=== PATIENT | male | born 1975 | race Hispanic/Latino ===

== ENCOUNTER → 2023-04-22 | Outpatient (CLI) | payer OTHER ==
[~2023-04-22] MED LIST: CATA0.2T OR; CELE20TA OR; CELEXA PO; HYDR50TA8 OR; LEVI20TA OR; NEUR300C OR; SERO1TAB3 OR; SERO200T OR; SERO200T PO; SERO400T PO; TRAM50TA2 OR; TRAZ100T OR
== END ==
LOC: M RAD 07:33
PROVIDERS: ATTEND Nurse Practitioner Family
DX: I12.9 Hypertensive chronic kidney disease with stage 1 through stage 4 chronic kidney disease, or unspecified chronic kidney disease (principal); N18.30 Chronic kidney disease, stage 3 unspecified; E78.5 Hyperlipidemia, unspecified

== ENCOUNTER 2025-09-22 18:39 | Emergency (ER) | payer OTHER ==
[~2025-09-22] VITALS: Ht 193 cm; Wt 154.6 kg
[2025-09-22 19:15] LABS: BASO # 0.1 10^3/uL (0.0-0.2); BASO % 1.1 % (0.0-1.0); EOS # 0.2 10^3/uL (0.0-0.5); EOS % 2.4 % (0.0-3.0); LYMPH # 2.1 10^3/uL (1.5-5.0); LYMPH % 26.8 % (24.0-44.0); MONO # 0.7 10^3/uL (0.0-0.8); MONO % 8.8 % (2.0-8.0); NEUTROPHILS # 4.9 10^3/uL (1.5-8.5); NEUTROPHILS % 60.6 % (36.0-66.0); PLATELET COUNT, AUTOMATED 255 10^3/uL (150-450)
[2025-09-22] MEDS: MAALOX 30 ML SUSP *UDC PO ONE (19:37)
[2025-09-22] MEDS: LIDOCAINE VISCOUS 2% SOLN 15 ML UDC PO ONE (19:37)
[2025-09-22 19:44] LABS: ALT/SGPT 30 U/L (7.0-40); AST/SGOT 27 U/L (<34); CALCIUM LEVEL 9.4 MG/DL (8.5-10.1); CARBON DIOXIDE LEVEL 30 MMOL/L (20-31); CHLORIDE LEVEL 100 MMOL/L (98-107); CK-MB VALUE MASS 1.4 NG/ML (<3.6); CREATININE FOR GFR 1.66 MG/DL (0.70-1.30); GLOMERULAR FILTRATION RATE 50.2 (>60); POTASSIUM SERUM 3.9 MMOL/L (3.5-5.1); SODIUM LEVEL 139 MMOL/L (136-145)
[2025-09-22 19:49] LABS: CPK CREATINE PHOSPHOKINASE 196 U/L (46-171); MB/CK RELATIVE INDEX 0.71 (< OR =4)
[2025-09-22] MEDS ORDERED: ISOVUE-370 76% 100 ML VIAL As Ordered ONE (20:01)
[2025-09-22 20:57] LABS: CK-MB VALUE MASS 1.2 NG/ML (<3.6)
[2025-09-22 21:02] LABS: CPK CREATINE PHOSPHOKINASE 159.0 U/L (46-171); MB/CK RELATIVE INDEX 0.75 (< OR =4)
[2025-09-22] MEDS ORDERED: OMEP40CA4 PO (21:59)
[2025-09-22] MEDS ORDERED: SUCR1TA PO (21:59)
[2025-09-22 22:15] VITALS: BP 146/89; TEMP 97.4; O2SAT 97
== END 2025-09-22 22:21 | disposition home or self-care (01) ==
LOC: M ED 18:39
DX: K21.9 Gastro-esophageal reflux disease without esophagitis (principal); E11.9 Type 2 diabetes mellitus without complications; E78.5 Hyperlipidemia, unspecified; G47.33 Obstructive sleep apnea (adult) (pediatric); R00.0 Tachycardia, unspecified; J84.10 Pulmonary fibrosis, unspecified; K42.9 Umbilical hernia without obstruction or gangrene; K76.0 Fatty (change of) liver, not elsewhere classified
CPT/HCPCS: 36415; 71045; 71275; 74174; 80048; 80076; 82550; 82553; 83690; 84484; 85025; 87486; 87581; 87633; 87798; 93005; 93041; 94760; 99285; Q9967